=== PATIENT | male | born 1990 | race Hispanic/Latino ===

== ENCOUNTER 2022-09-18 08:57 | Emergency (ER) | payer SELFPAY ==
--- OUTSIDE RECORDS SUMMARY | 2022-09-18 09:01 | XMS REPORT | Continuity of Care Document ---
:1990 Author Organization [facility] t Address [address] [place] [address] Care Team Providers Name Role Phone Fani Angeles Primary Care Physician David Ga MD Attending Clinician Kd Ball MD Attending Clinician Alyssa Jones APRN Attending Clinician [phone] ELIDIA FREITAS Attending Clinician Unavailable Kenny Miller MD Attending Clinician HASEEB TEMPLETON Attending Clinician Unavailable MIKE GROSS Attending Clinician Unavailable Problems Condition Condition Condition Status Onset Resolution Last Treating Co mments Source Name Details Category Date Date Treatment Clinician Date Diabetes Diabetes Disease Active [facility] mellitus mellitus 11-28 Health 00:00: 00 Hyperlipid Hyperlipid Disease Active U T emia emia 11-28 Health 00:00: 00 Low back Low back Disease Active [facility] pain pain 11-28 Health 00:00: 00 Lumbosacra Lumbosacra Disease Active U T l disc l disc 11-28 Health disease disease 00:00: 00 Thoracic Thoracic Disease Active [facility] disc disc 11-28 Health disorder disorder 00:00: 00 BMI BMI Disease Active UT 39.0-39.9, 39.0-39.9, 8 He alth adult adult 00:00: 00 Advised Advised Disease Active [place] about about 11-28 Health management management 00:00: of weight of weight 00 Hyperthyro Hyperthyro Disease Active [facility] 00[facility]: Hospita 00 l Allergies, Adverse Reactions, Alerts Allergy Allergy Status Severity Reaction(s) Onset Inactive Treating Comm ents Source Name Type Date Date Clinician Iodinate Allergy Active [facility] d to 11-28 Health Diagnost substanc 00:00: ic e 00 Agents Iodine Propensi Active Anaphylaxis [facility] hodi ty to 06-07 st adverse 00:00: Hospita reaction 00 l s to drug Iodine Allergy Active Anaphylaxis [facility] to 06-07 Health substanc 00:00: e 00 Social History Social Habit Start Date Stop Date Quantity Comments Source History [facility] Health Alcohol Comment Gender identity [facility] of Social 2022-02-15 2022-02-[address] function 00:00:00 00:00:00 Hospital Tobacco use and 2022-02-15 2022-02-15 Smokeless [facility] 00:00:00 00:00:00 tobacco non-user Hospital Alcohol intake 2022-02-15 2022-02-15 Current [facility] 00:00:00 00:00:00 non-drinker of Hospital alcohol (finding) History [facility] 2021-11-28 2021-11-28 1 [facility] Alcohol Frequency 00:00:00 00:00:00 History [facility] 2021-11-28 2021-11-28 0 [facility] Alcohol Std Drinks 00:00:00 00:00:00 History [facility] 2021-11-28 2021-11-28 1 [facility] Alcohol Binge 00:00:00 00:00:00 Exposure to 2021-11-17 2021-11-27 Not sure [facility] SARS-CoV-2 (event) 00:00:00 15:26:00 Sex Ass[birth year] At [birth year] [facility]00 [facility] Smoking Status Start Date Stop Date Source Never smoked tobacco [facility] Medications Ordered Filled Start Stop Current Ordering Indication Dosage Frequency Signature Comments Components Source Medication Medication Date Date Medication? Clinician (SIG) Name Name camron 2021-04 No 25mg [id number] Take 1 [facility] (ANTIVERT) 04-18 [id number] tablet (25 st 25 mg 00:00: 05:59 3D mg total) Hospit a tablet 00 :00 by mouth 3 l (three) times a day as needed for dizziness for up to 3 days. ketorolac Yes Q6H Take by [facility] (Toradol) 8-30 mouth Health 10 MG 10:04: every 6 tablet 17 (six) hours if needed for moderate pain. gabapentin Yes 300mg Q.[id number] Take 300 [facility] (Neurontin) 8-30 [id number] mg by H ealth 300 MG 10:04: 3D mouth in capsule 17 the morning and 300 mg at noon and 300 mg in the evening. propranolol Yes propranolo UT (Inderal) 8-30 l 10 mg Health 10 MG 10:04: tablet tablet 17 Take 1 tablet po QAM, Monitor HR, Hold if less than 80 metFORMIN Yes QD 1 (one) UT (Glucophage 8-30 time each Hea lth ) 500 MG 10:04: day. tablet 17 atorvastati Yes QD 1 (one) UT n (Lipitor) 8-30 time each Hea lth 10 MG 10:04: day. tablet 17 HYDROcodone Yes UT -acetaminop 8-30 Health hen (Corbin) 10:04: 10-325 MG 17 tablet methylPREDN Yes [id number] Follow UT ISolone 830 schedule Health (Medrol 00:00: on package Dospak) 4 00 instructio MG tablets ns meloxicam 2021- No [id number] 7.5mg QD Take 1 UT (Mobic) 7.5 8-30 09-30 tablet Healt h MG tablet 00:00: 04:59 (7.5 mg 00 :00 total) by mouth 1 (one) time each day. gabapentin [id number] 300mg Q.[id number] Take 1 UT (Neurontin) 11-28 [id number] capsule Health 300 MG 00:00: 04:59 3D (300 mg capsule 00 :00 total) by mouth in the morning and 1 capsule (300 mg total) at noon and 1 capsule (300 mg total) in the evening. cyclobenzap No [id number] 10mg Q.[id number] Take 1 UT rine 11-28 [id number] tablet (10 He alth (Flexeril) 00:00: 04:59 3D mg total) 10 MG 00 :00 by mouth 3 tablet (three) times a day if needed for muscle spasms for up to 14 days. metFORMIN No 500mg Q.5D Take 1 Meth rae (GLUCOPHAGE 09-[address] ) 500 mg 00:00: 04:59 (500 mg Hospi ta tablet 00 :00 total) by l mouth 2 (two) times a day with meals for 30 days. Immunizations Ordered Immunization Filled Immunization Date Status Commen ts Source Name Name SARS-CoV-2, 2020-12-06 Completed [facility] Unspecified 00:00:00 SARS-CoV-2, 2020-11-15 Completed [facility] Unspecified 00:00:00 Vital Signs Vital Name Observation Time Observation Value Comments Source Systolic blood 2021-11-28 14:52:00 142 mm[Hg] [facility] pressure Diastolic blood 2021-11-28 14:52:00 88 mm[Hg] [facility] pressure Heart rate 2021-11-28 14:52:00 85 /min [facility] Body height 2021-11-28 14:52:00 170.2 cm [facility] Body weight 2021-11-28 14:52:00 113.399 kg [facility] BMI 2021-11-28 14:52:00 39.16 kg/m2 [facility] Systolic blood 2022-02-16 08:15:00 138 mm[Hg] [facility] pressure Diastolic blood 2022-02-16 08:15:00 80 mm[Hg] [facility] pressure Heart rate 2022-02-16 08:15:00 64 /min [facility] Respiratory rate 2022-02-16 08:15:00 14 /min [facility] Oxygen saturation in 2022-02-16 08:15:00 97 /min [facility] Arterial blood by Pulse oximetry Body temperature 2022-02-15 20:54:00 37.06 Stacia [facility] Body height 2022-02-15 20:54:00 170.2 cm [facility] Body weight 2022-02-15 20:54:00 111.131 kg [facility] BMI 2022-02-15 20:54:00 38.37 kg/m2 [facility] Procedures Procedure Date / Time Performing Clinician Source Performed ECG 12-LEAD 2022-02-16 08:05:49 Pedro Kasper spital MRI BRAIN WO CONTRAST 2022-02-16 07:55:00 Helio Templeton [facility] TROPONIN T 2022-02-16 01:25:[address] HEAD WO CONTRAST 2022-02-15 23:02:22 Pedro Kasper [facility] CBC WITH PLATELET AND 2022-02-15 22:19:00 Pedro Kasper [facility] DIFFERENTIAL COMPREHENSIVE METABOLIC 2022-02-15 22:19:00 Pedro Kasper [facility] PANEL TROPONIN T 2022-02-15 22:19:00 Pedro Kasper spital ESTIMATED GFR 2022-02-15 22:19:00 Pedro Kasper spital ECG ED PRELIMINARY 2021-09-19 17:20:18 Kenny Miller [facility] INTERPRETATION XR CHEST 2 VW 2021-09-19 16:28:00 Bety [facility] COMPREHENSIVE METABOLIC 2021-09-19 16:15:00 Bety [facility] PANEL CBC WITH PLATELET AND 2021-09-19 16:15:[facility]OPON[facility] T 2021-09-19 16:15:00 Bety [facility] B NATRIURETIC PEPTIDE 2021-09-19 16:15:00 [facility] ESTIM[facility] G[facility] 2021-09-19 16:15:00 [facility] Plan of Care Planned Activity Planned Date Details Comments Source Future Scheduled 2022-09-13 Pneumococcal Vaccine: [facility] Test 19:59:08 Pediatrics (0 to 5 Years) and At-Risk Patients (6 to 64 Years) (1 - PCV) [code = Pneumococcal Vaccine: Pediatrics (0 to 5 Years) and At-Risk Patients (6 to 64 Years) (1 - PCV)] Future Scheduled 2022-09-13 DIABETES: RETINAL EYE [facility] Test 19:59:08 EXAM [code = DIABETES: RETINAL EYE EXAM] Future Scheduled 2022-09-13 DIABETIC FOOT EXAM [facility] Test 19:59:08 [code = DIABETIC FOOT EXAM] Future Scheduled 2022-09-13 URINE MICROALBUMIN [facility] Test 19:59:08 [code = URINE MICROALBUMIN] Future Scheduled 2022-09-13 Hepatitis C screening [facility] Test 19:59:08 (procedure) [code = [id number]] Future Scheduled 2022-09-13 COVID-19 VACCINE (3 - [facility] Test 19:59:08 Pfizer series) [code = COVID-19 VACCINE (3 - Pfizer series)] Future Scheduled 2022-09-[address] [facility] Test 19:59:08 [code = INFLUENZA VACCINE] Encounters Start End Encounter Admission Attending Care Care Encounter Source Date/Time Date/Time Type Type Clinicians Facility Department ID 2021-11-28 Outpatient [facility] [id number] [place] 09:38:10 [id number] [facility] 2021-11-27 Outpatient [facility] [id number] [place] 15:22:34 [id number] [facility] 2021-11-25 Outpatient [facility] [id number] [place] 14:43:08 [id number] [facility] 2021-11-24 Outpatient [facility] [id number] [place] 15:51:07 [id number] [facility] 2021-11-23 Outpatient [facility] [id number] [place] 12:04:20 [id number] [facility] 2022-02-15 2022-02-16 Emergency David Ga 1.2.840.1 [id number] [facility] 19:13:00 03:27:00 Kd Ball 50046.1.1 806 s t 3.430.2.7 Hospit a .3.774839 l .8 2022-02-15 2022-02-16 Emergency KD BALL [facility] [id number] [place] 00:00:00 00:00:[address] 2022-02-15 2022-02-15 Travel 1.2.840.1 [id number] [id number] [facility] 00:00:00 00:00:[address] 3.430.2.7 0.2.7.3.698 Ho spita .3.134444 084.8 l .8 2021-11-28 2021-11-28 Office YANDY Jones [facility] [id number] [place] 10:00:00 11:13:44 Visit Alyssa SEYMOUR 350.1.13.58 [facility] 9.2.7.2.686 [address] [id number] 2021-11-21 2021-11-22 Emergency [facility] 21:13:00 02:16:00 ELIDIA Martinez [facility] 2021-09-19 2021-09-19 Emergency Miller, 1.2.840.1 [id number] [facility] 11:12:00 13:50:00 Kenny Mejia 19524.1.1 273 s t 3.430.2.7 Hospit a .3.390341 l .8 2021-09-19 2021-09-19 Travel 1.2.840.1 1.2.164.588 [id number] [facility] 00:00:00 00:00:[address] 3.430.2.7 0.2.7.3.698 Ho spita .3.069705 084.8 l .8 2021-09-19 2021-09-19 Emergency MILLER, [facility] [id number] [place] 00:00:00 00:00:00 KENNY [address] 2021-03-03 2021-03-03 Emergency HASEEB TEMPLETON [facility] [id number] [place] 00:00:00 00:00:[address] 2019-05-13 2019-05-14 Emergency [facility] [id number] [place] 00:00:00 00:00:[address] AATIF [address] Results Test Description Test Time Test Comments Results Result Comments Source ECG 12 lead 2022-02-17 02:01:32 Test Item Value Reference Range Interpretation Comme nts Ventricular rate (test code = 253) 63 Atrial rate (test code = 255) 63 CO interval (test code = 266) 190 QRSD interval (test code = 260) 94 QT interval (test code = 264) 386 QTC interval (test code = 265) 395 P axis 1 (test code = 267) 34 QRS axis 1 (test code = 268) 3 T wave axis (test code = 270) 43 EKG impression (test code = 273) Normal sinus rhythm-Normal ECG-In automated comparison with ECG of 03-MAR-2021 20:56,-No significant change was found- [facility]
[2022-09-18 10:07] LABS: Absolute Lymphocytes (CBC) 2.1 K/uL (0.7-4.9); Hematocrit 41.4 % (39.6-49.0); Lymphocytes % 34.8 % (15.3-44.8); MCV 86.8 fL (80-100); MPV 9.6 fL (7.6-11.3); RBC Red Blood Cell Count 4.77 M/uL (4.33-5.43)
--- NOTE | 2022-09-18 10:24 | RAD REPORT ---
EXAM DESCRIPTION: CT - Soft Tissue Neck Wo Contr CLINICAL HISTORY: Sore throat;Swelling COMPARISON: No comparisons TECHNIQUE: Thin axial CT images of the neck, performed without IV contrast. Multiplanar reformats w ere generated and reviewed. All CT scans are performed using dose optimization technique as appropriate and may include automated exposure control or mA/KV adjustment according to patient size. FINDINGS: Nasopharyngeal tissues are normal in appearance. Fossa Rosenmller are normal. Parapharyngeal fat triangles are symmetric. Tongue base structures are normal. Epiglottis and aryepiglottic folds are normal. Piriform sinuses are well aerated. The vocal cords are normal in appearance. No suspicious adenopathy. Mildly prominent and symmetric bilateral level 2A lymph nodes as above, lik allegra reactive/inflammatory. Salivary glands are normal in appearance. Upper lung ling are clear. Included intracranial contents are unremarkable. Straightening of normal cervical lordosis with posterior disc osteophyte complexes, most pronounced a t C7-T1 and T2-3, which could be contributing to degrees of central canal stenosis. IMPRESSION: No acute abnormality. No suspicious mucosal mass. Likely reactive bilateral level 2 a ly mph nodes. Early degenerative changes of the cervical and thoracic spine as above.
[2022-09-18 10:25] LABS: Albumin 3.5 g/dL (3.4-5.0); Bilirubin Total 0.4 mg/dL (0.2-1.0); Potassium 3.7 mEq/L (3.5-5.1); Protein, Total 7.4 g/dL (6.4-8.2)
--- NOTE | 2022-09-18 11:43 | EDPHYS ---
Physician Documentation [facility] Name: Don Carrillo Age: 32 yrs Sex: Male : 1990 Arrival Date: 09/18/2022 Time: 08:57 Bed 19 Private MD: ED Physician Lee Mendes HPI: 09/18 15:10 This 32 yrs old Male presents to ER via Ambulatory with complaints of Neck kdr Problem. 15:10 Patient states he feels like his throat is swelling and that he has right-sided neck kdr pain for about a week. States he recently started taking Synthroid and he had been on it previously but stopped for several months. He has not been on the medication for about 4 days. He started taking the medication because he was concerned about the swelling in his neck.. Onset: The symptoms/episode began/occurred gradually, 1 month(s) ago. Severity of symptoms: At their worst the symptoms were very mild mild in the emergency department the symptoms are unchanged. The patient has not experienced similar symptoms in the past. The patient has not recently seen a physician. Historical: - Allergies: 09:17 Iodine; db - PMHx: 09:14 Hypothyroidism; Diabetes mellitus; db - Immunization history:: Adult Immunizations unknown, Client reports receiving the 2nd dose of the Covid vaccine. - Social history:: Smoking status: Patient denies any tobacco usage or history of. Patient uses street drugs, marijuana. ROS: 15:10 Constitutional: Negative for fever, chills, and weight loss, Eyes: Negative for injury, kdr pain, redness, and discharge, ENT: Negative for injury, pain, and discharge, Cardiovascular: Negative for chest pain, palpitations, and edema, Respiratory: Negative for shortness of breath, cough, wheezing, and pleuritic chest pain, Abdomen/GI: Negative for abdominal pain, nausea, vomiting, diarrhea, and constipation, Back: Negative for injury and pain, : Negative for injury, bleeding, discharge, and swelling, MS/Extremity: Negative for injury and deformity, Skin: Negative for injury, rash, and discoloration, Neuro: Negative for headache, weakness, numbness, tingling, and seizure activity. Psych: Negative for depression, anxiety, suicide ideation, homicidal ideation, and hallucinations, Allergy/Immunology: Negative for hives, rash, and allergies, Endocrine: Negative for neck swelling, polydipsia, polyuria, polyphagia, and marked weight changes, Hematologic/Lymphatic: Negative for swollen nodes, abnormal bleeding, and unusual bruising. 15:10 Neck: Positive for pain at rest, swelling, The patient has a very large neck that it is often indistinguishable from his lower jaw to his upper chest wall. Therefore is difficult to assess any significant swelling given his body habitus. Exam: 15:10 Constitutional: This is a well developed, well nourished patient who is awake, alert, kdr and in no acute distress. Head/Face: Normocephalic, atraumatic. Neck: Trachea midline, no thyromegaly or masses palpated, and no cervical lymphadenopathy. Supple, full range of motion without nuchal rigidity, or vertebral point tenderness. No Meningismus. Chest/axilla: Normal chest wall appearance and motion. Nontender with no deformity. No lesions are appreciated. Cardiovascular: Regular rate and rhythm with a normal S1 and S2. No gallops, murmurs, or rubs. Normal PMI, no JVD. No pulse deficits. Respiratory: Lungs have equal breath sounds bilaterally, clear to auscultation and percussion. No rales, rhonchi or wheezes noted. No increased work of breathing, no retractions or nasal flaring. Abdomen/GI: Soft, non-tender, with normal bowel sounds. No distension or tympany. No guarding or rebound. No evidence of tenderness throughout. Back: No spinal tenderness. No costovertebral tenderness. Full range of motion. Skin: Warm, dry with normal turgor. Normal color with no rashes, no lesions, and no evidence of cellulitis. MS/ Extremity: Pulses equal, no cyanosis. Neurovascular intact. Full, normal range of motion. Neuro: Awake and alert, GCS 15, oriented to person, place, time, and situation. Cranial nerves II-XII grossly intact. Motor strength 5/5 in all extremities. Sensory grossly intact. Cerebellar exam normal. Normal gait. Psych: Awake, alert, with orientation to person, place and time. Behavior, mood, and affect are within normal limits. Vital Signs: 09:11 BP 158 / 89; Pulse 93; Resp 18; Temp 98.6; Pulse Ox 100% on R/A; Weight 97.98 kg; db Height 5 ft. 6 in. (R); Pain 07/09; 09:30 BP 148 / 72; Pulse 97; Resp 16; Pulse Ox 98% on R/A; db 10:30 BP 132 / 66; Pulse 90; Resp 16; Pulse Ox 97% ; db 11:30 BP 132 / 58; Pulse 83; Resp 18; Pulse Ox 98% on R/A; db 09:11 Body Mass Index 34.86 (97.98 kg, 167.64 cm) db 09:11 Pain Scale: Adult db MDM: 11:42 Patient medically screened. kdr 15:10 Data reviewed: vital signs, nurses notes, lab test result(s), radiologic studies. kdr 09/18 09:26 Order name: Glucose, Ancillary Testing; Complete Time: 10:26 EDMS 09/18 09:34 Order name: CBC with Diff; Complete Time: 10:26 kdr 09/18 09:34 Order name: CMP; Complete Time: 10:26 kdr 09/18 09:59 Order name: Soft Tissue Neck Wo Contr; Complete Time: 10:26 EDMS Administered Medications: 11:56 Drug: Ibuprofen PO 800 mg Route: PO; db 12:03 Follow up: Response: No adverse reaction db Disposition Summary: 09/18/22 11:42 Discharge Ordered Location: Home kdr Problem: new kdr Symptoms: have improved kdr Condition: Stable kdr Diagnosis - Neck pain, headache kdr Followup: kdr - With: Private Physician - When: 2 - 3 days - Reason: If symptoms return, Further diagnostic work-up, Recheck today's complaints, Continuance of care, Re-evaluation by your physician Discharge Instructions: - Discharge Summary Sheet kdr - General Headache Without Cause kdr - Musculoskeletal Pain kdr Forms: - Medication Reconciliation Form kdr - Thank You Letter kdr Signatures: Dispatcher [employer] EDMS Lee Mendes MD MD kdr Caryn Cristina RN RN db Corrections: (The following items were deleted from the chart) 09:59 09:35 Soft Tissue Neck W/Contr+CT.RAD.BRZ ordered. EDDE EDMS
--- NOTE | 2022-09-18 11:43 | ER ---
Nurse's Notes [facility] Name: Don Carrillo Age: 32 yrs Sex: Male : 1990 Arrival Date: 09/18/2022 Time: 08:57 Bed 19 Private MD: Diagnosis: Neck pain, headache Presentation: 09/18 09:11 Chief complaint: Patient states: patient states feels like has throat swelling and db right side neck pain x 1 week. states recently started taking thyroid medication again because of swelling symptoms. has not been taking metformin either and started taking it again 4 days ago. Coronavirus screen: Vaccine status: Patient reports receiving the 2nd dose of the covid vaccine. Client denies travel out of the [place] in the last 14 days. At this time, the client does not indicate any symptoms associated with coronavirus-19. Ebola Screen: Patient negative for fever greater than or equal to 101.5 degrees Fahrenheit, and additional compatible Ebola Virus Disease symptoms Patient denies exposure to infectious person. Patient denies travel to an Ebola-affected area in the 21 days before illness onset. No symptoms or risks identified at this time. Initial Sepsis Screen: Does the patient meet any 2 criteria? No. Patient's initial sepsis screen is negative. Does the patient have a suspected source of infection? No. Patient's initial sepsis screen is negative. Risk Assessment: Do you want to hurt yourself or someone else? Patient reports no desire to harm self or others. Onset of symptoms was September 11, 2022. 09:11 Method Of Arrival: Ambulatory db 09:11 Acuity: MOIAR 3 db Triage Assessment: 09:19 General: Appears in no apparent distress. comfortable, Behavior is calm, cooperative. db Respiratory: Reports shortness of breath at rest Onset: The symptoms/episode began/occurred. 09:19 Neuro: Level of Consciousness is awake, alert, obeys commands, Oriented to person, db place, time, situation. Historical: - Allergies: 09:17 Iodine; db - PMHx: 09:14 Hypothyroidism; Diabetes mellitus; db - Immunization history:: Adult Immunizations unknown, Client reports receiving the 2nd dose of the Covid vaccine. - Social history:: Smoking status: Patient denies any tobacco usage or history of. Patient uses street drugs, marijuana. Screenin:16 [facility] ED Fall Risk Assessment (Adult) History of falling in the last 3 months, db including since admission No falls in past 3 months (0 pts) Confusion or Disorientation No (0 pts) Intoxicated or Sedated No (0 pts) Impaired Gait No (0 pts) Mobility Assist Device Used No (0 pt) Altered Elimination No (0 pt) Score/Fall Risk Level 0 - 2 = Low Risk Oriented to surroundings, Maintained a safe environment. Abuse screen: Denies threats or abuse. Denies injuries from another. Nutritional screening: No deficits noted. Tuberculosis screening: No symptoms or risk factors identified. Assessment: 09:15 Reassessment: Patient appears in no apparent distress at this time. Patient and/or db family updated on plan of care and expected duration. Pain level reassessed. Patient is alert, oriented x 3, equal unlabored respirations, skin warm/dry/pink. General: Appears in no apparent distress. comfortable, Behavior is calm, cooperative. Pain: Complains of pain in neck. Neuro: Level of Consciousness is awake, alert, obeys commands, Oriented to person, place, time, situation. Cardiovascular: Denies. Respiratory: Airway is patent Respiratory effort is even, unlabored, Breath sounds are clear. 09:17 Reassessment: patient ambulatory to restroom. db 10:00 Reassessment: Patient appears in no apparent distress at this time. Patient and/or db family updated on plan of care and expected duration. Pain level reassessed. Patient is alert, oriented x 3, equal unlabored respirations, skin warm/dry/pink. 11:00 Reassessment: Patient appears in no apparent distress at this time. Patient and/or db family updated on plan of care and expected duration. Pain level reassessed. Patient is alert, oriented x 3, equal unlabored respirations, skin warm/dry/pink. 12:02 Reassessment: Patient appears in no apparent distress at this time. Patient and/or db family updated on plan of care and expected duration. Pain level reassessed. Patient is alert, oriented x 3, equal unlabored respirations, skin warm/dry/pink. Patient states feeling better. Vital Signs: 09:11 BP 158 / 89; Pulse 93; Resp 18; Temp 98.6; Pulse Ox 100% on R/A; Weight 97.98 kg; db Height 5 ft. 6 in. (R); Pain 4/10; 09:30 BP 148 / 72; Pulse 97; Resp 16; Pulse Ox 98% on R/A; db 10:30 BP 132 / 66; Pulse 90; Resp 16; Pulse Ox 97% ; db 11:30 BP 132 / 58; Pulse 83; Resp 18; Pulse Ox 98% on R/A; db 09:11 Body Mass Index 34.86 (97.98 kg, 167.64 cm) db 09:11 Pain Scale: Adult db ED Course: 08:59 Patient arrived in ED. am2 09:01 Lee Mendes MD is Attending Physician. kdr 09:11 Carny Cristina, RN is Primary Nurse. db 09:14 Triage completed. db 09:15 Arm band placed on Patient placed in an exam room. db 09:50 Inserted saline lock: 20 gauge in right antecubital area, using aseptic technique. db Blood collected. 09:59 Soft Tissue Neck Wo Contr In Process Unspecified. EDMS 12:02 Patient has correct armband on for positive identification. Bed in low position. Call db light in reach. Side rails up X 1. oil well logging engineer on. Pulse ox on. 12:02 No provider procedures requiring assistance completed. IV discontinued, intact, db bleeding controlled, No redness/swelling at site. Administered Medications: 11:56 Drug: Ibuprofen PO 800 mg Route: PO; db 12:03 Follow up: Response: No adverse reaction db Medication: 12:02 VIS not applicable for this client. db Outcome: 11:42 Discharge ordered by . kdr 12:02 Discharged to home ambulatory. db 12:02 Condition: stable 12:02 Discharge instructions given to patient, Instructed on discharge instructions, follow up and referral plans. 12:03 Patient left the ED. db Signatures: Dispatcher [employer] EDNE Lee Mendes MD MD kdr Moreno, Amanda am2 Caryn Cristina, RN RN db
[2022-09-18] MEDS ORDERED: IBUPROFEN 400 MG TAB ONE (12:03)
[2022-09-18 12:22] VITALS: TEMP 98.6
[2022-09-18 12:26] VITALS: BP 132/58; O2SAT 98
== END 2022-09-18 12:03 | disposition home or self-care (01) ==
LOC: ER 08:57
DX: M54.2 Cervicalgia (principal); R51.9 Headache, unspecified
CPT/HCPCS: 36415; 70490; 80053; 82947; 85025; 99284